=== PATIENT | male | born 1960 | race Caucasian/White ===

== ENCOUNTER 2017-10-15 12:11 | Emergency (ER) | payer OTHER ==
[~2017-10-15] VITALS: Ht 182.9 cm; Wt 117.9 kg
[~2017-10-15 12:11] MED LIST: ASA81BEC PO; ASPIRIN81 M2 PO; ATORVASTATIN CA40 MG PO; BAYER CHEWABLE81 MG PO; CARAFATE 1 GM TA1 G1 PO; CELEXA 20 MG TA20 MG PO; CELEXA40 MG PO; COLACE100 MG; COLACE100 MG PO; EFFIENT10 MG PO; FENTANYL PA25 MCG/HR TRANSDERM; HYDROCODON-ACE1 EAC7 PO; IMDUR 30 MG TAB30 M1 PO; LISINOPRIL-HCT1 EACH PO; LISINOPRIL10 MG PO; LOPRESSOR25 PO; NICOTINE TRANSD14 M1 TD; NITROGLYCERIN0.4 MG SL; NITROSTAT0.4 MG SUBLING; NORCO 5-325 TA1 EACH PO; PROTONIX40 M1 PO; PROTONIX40 M2 PO; TAMSULOSIN HCL0.4 MG PO; TRAMADOL 50 MG50 MG PO; TYLENOL325 MG PO; VENLAFAXINE HCL75 MG PO; VICODIN 5-3001 EACH PO; VISTARIL 25 MG25 M1 PO; XANAX 0.25 MG0.25 MG PO; XANAX 0.5 MG0.5 M1 PO; XANAX1 MG PO; ZANTAC 150MG T150 MG PO; ZOCOR 20 MG TAB20 M1 PO; ZOCOR40 MG PO
[2017-10-15] MEDS ORDERED: NORCO 10-325 T1 EACH PO (14:37)
[2017-10-15] MEDS ORDERED: PREDNISONE 20 M20 M1 PO (14:37)
[2017-10-15] MEDS ORDERED: CYCLOBENZAPRINE5 MG PO (14:37)
[2017-10-15 14:56] VITALS: BP 148/76
== END 2017-10-15 14:58 | disposition home or self-care (01) ==
LOC: ER 12:11
DX: M51.26 Other intervertebral disc displacement, lumbar region (principal); M51.36 Other intervertebral disc degeneration, lumbar region; I10 Essential (primary) hypertension; E78.5 Hyperlipidemia, unspecified; K21.9 Gastro-esophageal reflux disease without esophagitis; F17.210 Nicotine dependence, cigarettes, uncomplicated; Z90.49 Acquired absence of other specified parts of digestive tract; Z88.1 Allergy status to other antibiotic agents

== ENCOUNTER 2018-06-13 05:36 | Inpatient (IN) | payer OTHER ==
[~2018-06-13] VITALS: Ht 182.9 cm; Wt 132.0 kg
--- NOTE | ~2018-06-13 | HC ---
[facility] [place] [address] [address] CONSULTATION Name: LUDY YEN Room #: 213-P ADM IN M.R.#: [id number] Admission: 06/13/18 Attend Phys: Brandon Church MD Discharge: Date of : 58 Report #: [id number] THIS REPORT FOR: //name// CC: Brandon Ocampo DATE OF SERVICE: 06/13/2018 TYPE OF REPORT: Cardiology consultation. HISTORY OF THE PRESENT ILLNESS: The patient is a 58-year-old single white male who I was asked to see in the hospital today after he complained of chest pain. The patient had previous stenting of his right coronary artery in 2012. He has been followed by my partner, Dr. Valentino Triplett. He has had multiple rehospitalizations here at [facility] with recurrent chest pain. He actually had a repeat heart catheterization in 2013 from the right radial artery that showed an ejection fraction of 60%. No significant disease in the LAD and circumflex. The right coronary artery had sequential 70% stenosis. Medical therapy was recommended at that time as the stent appeared to be widely patent and the disease in the circumflex was distal and in a small branch. He had a repeat cardiac catheterization in 2014. The patient at that time was felt to be having atypical chest pain. The patient has not seen Dr. Triplett since 2014. The patient is not very active because of chronic back pain. He was doing well until yesterday and he went to cut some wood. Last night, he was lying watching TV, felt an ache in his chest, felt somewhat short of breath. It persisted, so he went to the Emergency Room in [place], [place]. He was then transferred by ambulance here to [facility]. The pain eventually resolved after several hours. He denied any diaphoresis with the episode. He denied the pain being related to food. He has had no blood in the stool. He denies any trauma to his chest. He has had no fever or cough. Denies exertional dyspnea, palpitations or syncope. PAST MEDICAL HISTORY: Otherwise significant for cholecystectomy, back surgery, depression, hypertension, hyperlipidemia and previous EGD showed a peptic ulcer disease. MEDICATIONS: Currently, he is on only Celexa, aspirin and lisinopril. ALLERGIES: He has intolerance to SULFA DRUGS. FAMILY HISTORY: His father had coronary artery bypass surgery. SOCIAL HISTORY: He is from . Currently lives with his mother in [place], [place]. He still smokes a pack of cigarettes a day. No alcohol abuse[place] [address] CONSULTATION Name: LUDY YEN Room #: 213-P [facility] IN M.R.#: [id number] Admission: 06/13/18 Attend Phys: Brandon Church MD Discharge: Date of : 58 Report #: [id number] REVIEW OF SYSTEMS: He has had no history of stroke, asthma, liver disease, kidney disease, cancer, chronic skin condition. Does have a history of depression. PHYSICAL EXAMINATION: GENERAL: A large middle-aged male, appeared in no distress. VITAL SIGNS: He had a blood pressure 140/70, pulse 70 and he is afebrile. HEENT: He is anicteric. Conjunctivae pink. Mucous membranes are moist. NECK: Veins do not appear distended. No carotid bruits. CHEST: Clear to auscultation. CARDIOVASCULAR: Regular rate and rhythm without rub. ABDOMEN: Obese. EXTREMITIES: Had no edema. Posterior tibial pulse 2+ bilaterally. SKIN: Warm and dry. NEUROLOGICAL: Nonfocal. RADIOLOGICAL DATA: His ECG showed a sinus rhythm, left axis deviation and nonspecific T-wave changes. LABORATORY DATA: His workup, he had lab work consisted of the following, all done in [place], [place]: White blood cell count 10.1 and hemoglobin 15.7. Sodium 140, potassium 4.0 and creatinine 0.9. Liver function studies were normal. Troponin 0.02. His troponin today here at [facility] is less than 0.06. He had cholesterol 226, triglyceride 155, HDL 41 and LDL 154. White blood cell count 9.0. IMPRESSION AND RECOMMENDATIONS: 1. Chest pain. No evidence of acute myocardial infarction. Possible noncardiac. Recommend stress test. 2. Coronary artery disease. Previous stent of the right coronary artery. 3. Hypertension. The patient is on angiotensin-converting enzyme inhibitor. 4. Hyperlipidemia. The patient has been on a statin drug. 5. Tobacco abuse. 6. Chronic back pain. 7. History of depression. By: 1807 0201 Jean-Claude Perla MD, [facility] /nt
--- NOTE | ~2018-06-13 | EXE ---
[facility] [address] [place] [address] STRESS ECHOCARDIOGRAM Name: YOVANALUDY AKERS Room #: 213-P [facility] IN ..#: [id number] Admission: 06/13/18 Attend Phys: Brandon Church MD Discharge: 06/14/18 Date of : 58 Date of Service: 06/17/18 1821 Report #: [id number] THIS REPORT FOR: //name// APPROVED REPORT Study performed: 06/14/2018 08:27:23 Exam: Dobutamine Stress Echo Indication: Chest pain Patient Location: Echo lab Stress Nurse: Kathya Donahue RN Room #: 213 Status: routine Ht: 6 ft 0 in HR: 72 bpm BP: 146/108 mmHg Rhythm: NSR Medical History Medical History: CAD s/p stent, HTN, Hyperlipidemia Cardiac Risk Factors: HTN, Hyperlipidemia, Smoking Previous Cardiac Procedures: PCI Exercise History: Sedentary Procedure The patient underwent a Pharmacological Stress Test using Dobutamine. Blood pressure, heart rate, and EKG were monitored. An Echocardiogram was performed by armored service technician in four stages in quad fashion. At peak stress, four selected images were obtained and placed side by side with resting images for comparison. Echo Enhancing Agent Indication: Endocardial border delineation Agent(s) / Amount(s) Used: Optison 6 cc Stress Test Details Stress Test: Pharmacological Stress Test using Dobutamine. Reason for pharmacologic stress test: physical limitation. HR Resting HR: 72 bpm Max Heart Rate (APMHR): 161 bpm Max HR Achieved: 129 bpm Target HR (85% APMHR): 136 bpm % of APMHR: 80 Recovery HR: 118 bpm HR response to stress: Blunted HR response to stress [facility] [address] [place] [address] STRESS ECHOCARDIOGRAM Name: LUDY YEN Room #: 213-P [facility].#: [id number] Admission: 06/13/18 Attend Phys: Brandon Church MD Discharge: 06/14/18 Date of : 58 Date of Service: 06/17/18 1821 Report #: [id number] Resting BP: 146/108 mmHg Max BP: 146/108 mmHg Recovery BP: 122/60 mmHg ECG Resting ECG: Sinus Rhythm, nonspecific ST-T abnormalities Stress ECG: Sinus Rhythm, nonspecific ST-T abnormalities ST Change: Upsloping ST depression Maximum ST Deviation: 0.5 mm Arrhythmia: VPC's Recovery ECG: Sinus Rhythm, nonspecific ST-T abnormalities Recovery ST Change: Horizontal ST depression Recovery ST Deviation: 0.5 mm Recovery Arrhythmia: None Clinical Reason for Termination: Unable to obtain peak heart rate Exercise duration: 14 min 39 sec Pre-Stress Echo The resting Echocardiogram showed normal left ventricular contractility with an estimated Ejection Fraction of about >55%. Post-Stress Echo The stress Echocardiogram showed normal left ventricular contractility with an estimated Ejection Fraction of about >70%. Unable to achieve target heart rate. Conclusion Clinical Response: Non-ischemic Stress ECG Response: Indeterminant Stress Echo Images: Non-ischemic indeterminant dobutamine stress echo for ischemia secondary to inability to achieve target heart rate Other Information Study Quality: Adequate,Technically Limited <Conclusion> [facility] [address] [place] [address] STRESS ECHOCARDIOGRAM Name: YOVANALUDY DELPHINE Room #: 213-P [facility]#: [id number] Admission: 06/13/18 Attend Phys: Brandon Church MD Discharge: 06/14/18 Date of : 58 Date of Service: 06/17/181820 Report #: [id number] indeterminant dobutamine stress echo for ischemia secondary to inability to achieve target heart rate <ELECTRONICALLY SIGNED> By: Jean-Claude Perla MD, FACC 06/17/181820 20 20 Jean-Claude Perla MD, FACC /INF
--- NOTE | ~2018-06-13 | EKG ---
[place] [address] [facility] [place] [address] ELECTROCARDIOGRAM REPORT Name: LUDY YEN Room #: 213-P ADM IN M.R.#: [id number] Admission: 06/13/18 Attend Phys: Brandon Church MD Discharge: Date of : 58 Report #: [id number] THIS REPORT FOR: //name// [facility] Test Date: 2018-06-13 Test Time: 06:50:41 Pat Name: LUDY YEN Department: Room: 213 P Gender: M Body Designer: yesi : 1960 Requested By: Ying Frank Order Number: [id number] MD: Rommel Russell Measurements Intervals [place] Rate: 69 P: 73 IA: 146 QRS: -63 QRSD: 118 T: 164 QT: 409 QTc: 438 Interpretive Statements Sinus rhythm LAFB Poor R wave progression Nonspecific ST and T wave abnormality Compared to ECG 02/19/2015 15:16:31 ST and T wave abnormality is new Electronically Signed On 06-14-2018 8:15:38 CDT by Rommel Russell [email or web address] <ELECTRONICALLY SIGNED> By: Rommel Russell MD, [facility] 06/14/18 0815 0650 0650 Rommel Russell MD, [facility] /EPI
[~2018-06-13 05:36] MED LIST changes: +CYCLOBENZAPRINE5 MG PO; +NORCO 10-325 T1 EACH PO; +PREDNISONE 20 M20 M1 PO
[2018-06-13 05:41] VITALS: BP 142/78
[2018-06-13 06:37] LABS: HEMATOCRIT 42.8 % (42.0-52.0); HEMOGLOBIN 14.7 gm/dL (14.0-18.0); MCH 31.1 pg (26.0-34.0); MCHC 34.3 g/dL (28.0-37.0); MCV 90.8 fL (80.0-100.0); RBC 4.71 mil/uL (4.50-6.00)
[2018-06-13 06:54] LABS: CHOLESTEROL 226 mg/dL (<200); HDL CHOLESTEROL 41 mg/dL (>40); LDL CHOLESTEROL 154 mg/dL (<100); TC:HDL 5.5 Ratio (Not establshd); TRIGLYCERIDE 155 mg/dL (<150); VLDL 31 mg/dL (<40)
[2018-06-13 07:38] VITALS: BP 146/79
[2018-06-13 11:12] VITALS: BP 135/85
[2018-06-13 16:40] VITALS: BP 162/101
[2018-06-13 20:06] LABS: GLYCOHEMOGLOBIN (HGB A1C) 6.2 % (4.8-5.6)
[2018-06-13 20:29] VITALS: BP 132/66
[2018-06-14 07:11] LABS: HEMATOCRIT 46.9 % (42.0-52.0); HEMOGLOBIN 15.7 gm/dL (14.0-18.0); MCH 30.8 pg (26.0-34.0); MCHC 33.4 g/dL (28.0-37.0); MCV 92.2 fL (80.0-100.0); PLATELET COUNT 252 thou/uL (150-400); RBC 5.09 mil/uL (4.50-6.00); RDW 12.9 % (10.5-14.5); WBC 13.5 thou/uL (4.0-11.0)
[2018-06-14 07:16] LABS: CALCIUM 9.2 mg/dL (8.5-10.1); CREATININE 0.9 mg/dL (0.7-1.3); POTASSIUM 5.3 mmol/L (3.5-5.1)
[2018-06-14 08:05] LABS: ABSOLUTE NEUTROPHILS 8.4 thou/uL (1.4-8.2)
[2018-06-14 12:47] VITALS: BP 152/94
[2018-06-14] MEDS ORDERED: ASPIR 8181 MG PO (16:28)
[2018-06-14 16:41] VITALS: BP 152/94
== END 2018-06-14 17:55 | disposition home or self-care (01) | DRG 313 ==
LOC: 2N 05:36 → ENTRNSPT 06-14 17:25 → 2N 06-14 17:55
PROVIDERS: Nurse Practitioner; Nurse Practitioner Acute Care
DX: R07.9 Chest pain, unspecified (principal); F32.9 Major depressive disorder, single episode, unspecified; I10 Essential (primary) hypertension; E78.5 Hyperlipidemia, unspecified; I25.10 Atherosclerotic heart disease of native coronary artery without angina pectoris; G89.29 Other chronic pain; M54.9 Dorsalgia, unspecified; E78.00 Pure hypercholesterolemia, unspecified; M19.90 Unspecified osteoarthritis, unspecified site; F17.210 Nicotine dependence, cigarettes, uncomplicated; F41.9 Anxiety disorder, unspecified; K21.9 Gastro-esophageal reflux disease without esophagitis; Z91.14 Patient's other noncompliance with medication regimen; Z23 Encounter for immunization; Z90.49 Acquired absence of other specified parts of digestive tract; Z87.11 Personal history of peptic ulcer disease; Z88.2 Allergy status to sulfonamides; Z82.49 Family history of ischemic heart disease and other diseases of the circulatory system; Z95.5 Presence of coronary angioplasty implant and graft; Z83.3 Family history of diabetes mellitus; Z79.899 Other long term (current) drug therapy
CPT/HCPCS: 10081